=== PATIENT | female | born 1980 ===

== ENCOUNTER 2025-10-24 14:36 | Emergency (ER) | payer BC, OTHER ==
[~2025-10-24] VITALS: Ht 157.5 cm; Wt 74.9 kg
[2025-10-24 15:02] VITALS: TEMP 97.8
[2025-10-24 19:02] LABS: MEAN PLATELET VOLUME 8.5 FL (7.4-10.4); RED CELL DISTRIBUTION WIDTH 13.5 % (11.5-14.5)
[2025-10-24 19:04] LABS: LEUKOCYTE ESTERASE ,URINE NEGATIVE (Neg); NITRITES, URINE NEGATIVE (Neg); OCCULT BLOOD,URINE LARGE (Neg)
[2025-10-24 19:24] LABS: UA COLLECTION TYPE CLN CATCH MIDSTREAM
[2025-10-24 19:25] LABS: MUCUS STRANDS FEW /LPF (Neg); SQUAMOUS EPITHELIAL CELL,UR FEW /LPF (FEW)
[2025-10-24] MEDS ORDERED: iohexol 300mg/ml 100ml inj. ONE (19:31)
[2025-10-24] MEDS: metroNIDAZOLE-Flagyl 500mg/NS 100 ML IV STA (20:05)
--- NOTE | 2025-10-24 20:06 | RADIOLOGY REPORT ---
EXAM: CT CT ABDOMEN PELVIS W/ IV CONTRAST History: Left lower quadrant pain rule out diverticulitis Comparison Study: None Exam Date: 10/24/2025 07:30 PM Radiation Dose Information: CT Dose: CTDI volume is 18 mGy. Dose-length product is 971 mGy*cm TECHNIQUE: During the uneventful, intravenous administration of contrast material, multislice data acquisition was obtained through the abdomen and pelvis. The data set was subsequently reconstructed into axial images. Images were reviewed on a work station using a combination of axial and multiplanar using a variety of window levels and settings. FINDINGS: Lower chest: Clear. Liver: Mildly decreased in attenuation diffusely Biliary system: Cholelithiasis Spleen: Unremarkable Pancreas: Unremarkable. Adrenals: Unremarkable. Kidneys and ureters: Normal renal enhancement. No hydronephrosis Bowel: No obstruction. Acute diverticulitis of the distal descending colon. No abscess. Normal appendix. Bladder: Unremarkable Reproductive organs: Heterogeneous appearance of the cervical region with cystic changes likely representing nabothian cysts. Lymph nodes: Unremarkable. Peritoneum: Unremarkable Vessels: Patent major intra-abdominal vasculature. Bones and soft tissue: No aggressive osseous lesion IMPRESSION: Acute diverticulitis of the distal descending colon. No abscess. Cholelithiasis. Heterogeneous appearance of the cervical region with cystic changes likely representing nabothian cysts.
[2025-10-24] MEDS ORDERED: LEVO-65 PO (20:15)
[2025-10-24] MEDS ORDERED: METR-159 PO (20:15)
--- NOTE | 2025-10-24 20:16 | Physician Documentation ---
History of Present Illness Chief Complaint: Abdominal Pain Stated Complaint: VAGINAL BLEEDING Time Seen by MD: 18:06 OK to notify your PCP?: Yes Source: patient Mode of Arrival: POV Exam Limitations: no limitations HPI This is a 45-year-old female who comes in complaining of pain of her left mid to lower abdomen for the past day. No associated nausea or vomiting. No change in bladder or bowel habits. No fever or chills. Medication Reconciliation Allergies: Coded Allergies: Sulfa (Sulfonamide Antibiotics) (Verified Allergy, Unknown, 10/24/25) Physical Exam Vital Signs: Temperature: 97.8, Source: Temporal, Heart Rate: 101, Respiratory Rate: 18, BP: 155/93, Pulse Oximetry: 95, Weight: 74.900 Oxygen Flow Rate: 0 Pulse Oximetry Reflects: adequate oxygenation General Appearance: alert, WD/WN, no apparent distress Gastrointestinal Inspection of the abdomen no obvious distention. There is tenderness to palpation of the left lower quadrant of the abdomen. No rigidity, rebound or guarding x4 quadrants. Negative Busch's sign. Negative McBurney's point tenderness. Progress Results/Orders Reviewed/noted all lab results: Yes Results/Orders Orders - BIJAN LAGOS Ct Abdomen Pelvis (10/24/25 19:30) Saline Lock (10/24/25 18:24) Nothing By Mouth (10/25/25 Dinner) Metronidazole-Flagyl 500mg/Ns (Flagyl 50 (10/24/25 19:51) Levofloxacin-Levaquin 500mg/D5 (Levaquin (10/24/25 19:55) Completed Orders - BIJAN LAGOS Cbc/Diff (10/24/25 18:24) Lipase (10/24/25 18:24) Ct Abdomen Pelvis (10/24/25 19:30) Hcg Serum Qt (10/24/25 18:24) Ua W/Microscopic, Cult If Ind (10/24/25 18:40) Iohexol 300mg/Ml 100ml Inj. (Omnipaque-3 (10/24/25 19:31) Medications Received in ER Medications (Trade) Dose Ordered Sig/Cedric Route PRN Reason Start Time Stop Time Status Last Admin Dose Admin Metronidazole/ Sodium Chloride 100 ml @ 100 mls/hr ONCE STAT IV 10/24/25 19:51 10/24/25 20:50 10/24/25 20:05 100 MLS/HR Vital Signs 10/24/25 10/24/25 10/24/25 15:02 18:20 19:50 Temp 97.8 Pulse 105 95 101 Resp 18 18 18 B/P (MAP) 176/98 173/103 (126) 155/93 (113) Pulse Ox 99 100 95 O2 Flow Rate 0 0 Laboratory Tests Test 10/24/25 18:40 10/24/25 18:50 Urine Specimen Description Cln catch midstream Urine Color Yellow Urine Clarity Clear Urine pH 5.5 Urine Specific [place] >=1.030 Urine Protein Negative Urine Glucose (UA) Negative Urine Ketones Negative Urine Occult Blood Large H Urine Nitrite Negative Urine Bilirubin Negative Urine Urobilinogen 0.2 Urine Leukocyte Esterase Negative Urine RBC 10-20 Urine WBC 0-4 Urine Squamous Epithelial Cells Few Urine Bacteria None seen Urine Mucus Few Urine Culture Indicated Not ind Volume Urine Centrifuged 10 ml Urine Comment White Blood Count 7.5 Red Blood Count 4.03 L Hemoglobin 11.6 L Hematocrit 34.1 L Mean Corpuscular Volume 84.7 Mean Corpuscular Hemoglobin 28.7 Mean Corpuscular Hemoglobin Concent 33.9 Red Cell Distribution Width 13.5 Platelet Count 470 H Mean Platelet Volume 8.5 Neutrophils (%) (Auto) 52.0 Lymphocytes (%) (Auto) 38.2 Monocytes (%) (Auto) 5.8 Eosinophils (%) (Auto) 3.6 Basophils (%) (Auto) 0.4 Neutrophils # (Auto) 3.9 Lymphocytes # (Auto) 2.9 Monocytes # (Auto) 0.4 Eosinophils # (Auto) 0.3 Basophils # (Auto) 0.0 CBC Comment Lipase 37 HCG Beta Subunit < 1.0 Medical Decision Making Additional information obtaine: N/A Findings CT scan showed diverticulitis out evidence of perforation or abscess. I gave the patient a dose of Levaquin 500 mg IV as well as Flagyl 500 mg IV. We will continue with the Levaquin I have him mg once a day for the next 10 days as well as Flagyl twice a day for 10 days. I instructed the patient has stay away from foods that are hard to digest such as seeds and nuts. Follow up with the primary care physician for recheck in the next one or two days and return to the ER for any worsening or concerning symptoms. Differential Dx:Considerations: Cholelithasis, Constipation, Diverticular disease, Urinary tract infection, Urolithiasis Additional Comments With the diverticulitis. Noticed with a bowel perforation. Intra-abdominal abscess. Kidney stone. UTI. Colitis. Departure Disposition: HOME / SELF CARE / HOMELESS Impression: Primary Impression: Diverticulitis Condition: Stable Discharge Instructions: Diverticulitis Additional Instructions: As we discussed stay away from foods that are hard to digest such as seeds and nuts. Start a clear liquid supplement diet. Take the antibiotics as prescribed. Follow up with the primary care physician for recheck in the next one or two days and return to the ER for any worsening or concerning symptoms. Referrals: NO PRIMARY CARE PROVIDER (PCP) Prescriptions Metronidazole* (Flagyl*) 500 Mg Tablet 1 TAB PO Q12H for 10 Days, #20 TAB Prov: BIJAN LAGOS 10/24/25 Levofloxacin (Levofloxacin) 500 Mg Tablet 1 TAB PO DAILY for 10 Days, #10 TAB Prov: BIJAN LAGOS 10/24/25 Signature Scribe Signature: No scribe Attestation: The note accurately reflects work and decisions made by me.Bijan JOHNSON 10/24/25 20:15 BIJAN LAGOS Oct 24, 2025 20:16
[2025-10-24] MEDS: levoFLOXACIN-Levaquin 500mg/D5 100 ML IV ONE (21:01)
[2025-10-24 21:56] VITALS: BP 151/100; PULSE 90; RESP 16; O2SAT 99
== END 2025-10-24 22:07 | disposition home or self-care (01) ==
LOC: ER 14:37
DX: K57.32 Diverticulitis of large intestine without perforation or abscess without bleeding (principal); Z88.2 Allergy status to sulfonamides
CPT/HCPCS: 36415; 74177; 81001; 83690; 84702; 85025; 96365; 96368; 99285; J1956; J3490; Q9967; 96366